=== PATIENT | male | born 1955 | race American Indian/Alaskan Native ===

== ENCOUNTER → 2025-02-08 | Outpatient (CLI) | payer MEDICARE, MEDICAID, SELFPAY ==
[2025-02-08 09:21] LABS: Collection Type, Urine Clean Catch
[2025-02-08 09:41] LABS: Basophils % (Auto) 0 % (0-2.5); Eosinophils # (Auto) 0.1 Thou/mm3 (0.0-0.5); Eosinophils % (Auto) 2 % (0-10); Hematocrit 40.4 % (41.0-53.0); Hemoglobin 13.3 g/dL (13.5-16.0); Immature Granulocytes % (Auto) 1 % (0-0); Immature Granulocytes Auto 0.07 Thou/mm3 (0.00-0.00); Lymphocytes # (Auto) 1.7 Thou/mm3 (1.0-4.8); Lymphocytes % (Auto) 26 % (10-50); Mean Corpuscular HGB Conc 32.9 g/dl (31.0-37.0); Mean Corpuscular Hemoglobin 28.3 pg (25.0-35.0); Mean Corpuscular Volume 86 fL (80-100); Monocytes # (Auto) 0.5 Thou/mm3 (0.0-0.8); Monocytes % (Auto) 8 % (0-12); Neutrophils # (Auto) 4.1 Thou/mm3 (1.8-7.7); Neutrophils % (Auto) 62 % (37-80); Nucleated Red Blood Cell % 0 /100 WBC (0); Platelet Count 189 Thou/mm3 (140-440); RDW Standard Deviation 44.2 fL (35.1-43.9); White Blood Count 6.6 Thou/mm3 (3.8-10.6)
[2025-02-08 09:51] LABS: Glucose Estimated Average 266 mg/dL (80-131); Hemoglobin A1C 10.9 % Hgb (4.8-6.0)
[2025-02-08 10:05] LABS: Bacteria,Urine Rare; Bilirubin,Urine Negative (Negative); Blood,Urine Trace (Negative); Budding Yeast,Urine Present; Clarity,Urine Clear (Clear/Hazy); Color,Urine Lt-Yellow (Lt Yel-Yel); Glucose, Urine 4+ (Negative); Ketones,Urine Negative (Negative); Leukocyte Esterase,Urine Positive (Negative); Nitrite,Urine Negative (Negative); Protein,Urine 1+ (Neg - Trace); RBC,Urine 9 /hpf (0-3); Specific Gravity,Urine 1.028 (1.001-1.035); Squamous Epithelial Cell,Urine 2 /hpf (0-5); Urobilinogen,Urine Negative mg/dL (0.0-1.0); WBC,Urine 8 /hpf (0-5)
[2025-02-08 10:07] LABS: Alanine Aminotransferase 21 U/L (10-49); Albumin, Serum 4.3 gm/dL (3.4-4.8); Albumin/Globulin Ratio 1.8 (1.2-2.2); Alkaline Phosphatase 73 U/L (46-116); Anion Gap 8 (7-16); Aspartate Amino Transferase 19 U/L (0-34); BUN/Creatinine Ratio 22 Ratio (12-20); Bilirubin,Total 0.5 mg/dL (0.3-1.2); Blood Urea Nitrogen 24 mg/dL (9-23); Calcium 9.8 mg/dL (8.3-10.6); Calcium (Corrected) 9.8 mg/dL (8.5-10.1); Carbon Dioxide 26.8 mMol/L (20.0-31.0); Cardiac Risk Estimate 4.4 RATIO (4.0-6.7); Chloride 109 mMol/L (98-107); Cholesterol 153 mg/dL (132-200); Creatinine (Component) 1.1 mg/dL (0.6-1.3); Globulin 2.4 gm/dL (2.3-3.5); Glucose 173 mg/dL (74-106); HDL Cholesterol 35 mg/dL (40-60); LDL Cholesterol,Calculated 64 mg/dL (0-130); Osmolality,Calculated 294 (275-295); Potassium 4.5 mMol/L (3.4-5.1); Sodium 144 mMol/L (136-145); Total Protein 6.7 gm/dL (5.7-8.2); Triglycerides 269 mg/dL (30-150); eGFR > 60 See Note
== END | disposition home or self-care (01) ==
PROVIDERS: PCP Internal Medicine; Referring Provider Internal Medicine; Visit Provider Internal Medicine
DX: E11.22 Type 2 diabetes mellitus with diabetic chronic kidney disease (principal); I12.9 Hypertensive chronic kidney disease with stage 1 through stage 4 chronic kidney disease, or unspecified chronic kidney disease; E78.5 Hyperlipidemia, unspecified; N18.30 Chronic kidney disease, stage 3 unspecified
CPT/HCPCS: 36415; 80053; 80061; 81001; 83036; 85025